=== PATIENT | female | born 1945 | race Caucasian/White ===

== ENCOUNTER 2017-07-20 | Inpatient (IN) | payer MEDICARE, MEDICAID, SELFPAY | END 2017-07-25 11:30 | disposition E | DRG 189 | PROVIDERS: Admitting Provider Family Medicine; Family Provider Family Medicine; PCP Family Medicine; Visit Provider Family Medicine | DX: J96.92 Respiratory failure, unspecified with hypercapnia (principal); C34.02 Malignant neoplasm of left main bronchus; Z72.0 Tobacco use | CPT/HCPCS: 71010; 81001; 82803; 87086; 94640; 94660; 94760; J2405 ==